=== PATIENT | female | born 1940 | race Caucasian/White ===

== ENCOUNTER 2022-06-18 14:19 | Outpatient (RCR) | payer MEDICARE, BC, SELFPAY | END 2023-01-20 23:59 | disposition home or self-care (01) | PROVIDERS: PCP Family Medicine; Visit Provider Family Medicine | DX: F03.B0 Unspecified dementia, moderate, without behavioral disturbance, psychotic disturbance, mood disturbance, and anxiety (principal); Z51.89 Encounter for other specified aftercare | CPT/HCPCS: 97165 ==

== ENCOUNTER 2022-10-18 10:37 | Outpatient (CLI) | payer MEDICARE, BC, SELFPAY | END 2022-10-18 10:38 | disposition home or self-care (01) | LOC: AMB 10-22 09:44 | PROVIDERS: PCP Family Medicine; Visit Provider Family Medicine | DX: R53.1 Weakness (principal); R11.10 Vomiting, unspecified; R19.7 Diarrhea, unspecified | CPT/HCPCS: A0425; A0429 ==

== ENCOUNTER 2022-10-18 10:52 | Emergency (ER) | payer MEDICARE, BC, SELFPAY ==
[2022-10-18 11:09] VITALS: BP 111/70; PULSE 64; RESP 18; TEMP 35.6; O2SAT 96; BMI 23.3
--- NOTE | 2022-10-18 11:47 | ED.GENADULT ---
HPI - General Adult General Date Seen: 10/18/22 Chief complaint: Nausea/Vomiting Stated complaint: Low BP Time Seen by Provider: 10/18/22 11:07 Source: patient and family Mode of arrival: EMS Limitations: other History of Present Illness HPI narrative: Patient is an 81-year-old woman here from [facility] by EMS. Her daughter is with her. She does live on the dementia unit and acknowledges that her memory is poor although she is able to provide a reasonably good history. She says that this morning she got up and went down to have some breakfast. She drank a half a cup of coffee and then says that she started to eat breakfast. [place] through breakfast she says she all of a sudden started vomiting. She vomited a couple of times and has not vomited since then. She did then have some diarrhea as well which is not reported to be bloody. Her daughter reports that she has been vacillating a bit between constipation and diarrhea and they been working on getting at the right dose of senna and having her eat prunes to try and manage her bowel movements. So, some diarrhea is not necessarily unusual for her. She denies any abdominal pain. She does not recall having any chest pain, difficulty breathing, lightheadedness or palpitations. There is no reported fever. She denies urinary symptoms. She has no history of abdominal surgeries. She does not feel currently significantly ill. There was concerned that her blood pressures were low in the 90s. They have been above 104 EMS as well as here. Related Data Home Medications Medication Instructions Recorded Confirmed acetaminophen 500 mg capsule 500 mg PO Q6H PRN 10/18/22 10/18/22 cholecalciferol (vitamin D3) 25 25 mcg PO DAILY 10/18/22 10/18/22 mcg (1,000 unit) capsule levothyroxine 88 mcg tablet 88 mcg PO DAILY 10/18/22 10/18/22 magnesium 250 mg tablet 250 mg PO DAILY 10/18/22 10/18/22 melatonin 5 mg tablet 5 mg PO HS PRN 10/18/22 10/18/22 mirtazapine 45 mg tablet 45 mg PO QPM 10/18/22 10/18/22 nystatin 100,000 unit/gram topical 1 applic topical PRN 10/18/22 10/18/22 powder peg 400-propylene glycol 0.4 %-0.3 1 drp ophthalmic (eye) BID PRN 10/18/22 10/18/22 % eye drops (Lubricant Eye (PG-PEG 400)) timolol 0.5 % eye drops (Betimol) 1 drp ophthalmic (eye) DAILY 10/18/22 10/18/22 venlafaxine 75 mg capsule,extended 1 PO BID 10/18/22 release 24 hr vitamins A,C,A-cdpv-nlzwoe 2,148 2 tab PO BID 10/18/22 10/18/22 mcg-113 mg-45 mg-17.4 mg tablet (PreserVision AREDS) Allergies Allergy/AdvReac Type Severity Reaction Status Date / Time donepezil [From Aricept] Allergy Verified 10/18/22 11:03 lisinopril Allergy Verified 10/18/22 11:03 Sulfa (Sulfonamide Allergy Verified 10/18/22 11:03 Antibiotics) zaleplon Allergy Verified 10/18/22 11:03 Review of Systems Status of ROS: Reports: 10 or more systems reviewed and unremarkable except as noted in History and below PFSH PFS Social History Smoking Status: Never smoker Do you use any of these nicotine containing products: None Second hand tobacco smoke exposure: No How often do you have a drink containing alcohol: never How often do you have six or more drinks on one occasion: Never AUDIT-C Alcohol total score: 0 Non-prescribed substance use: denies use service: No Exam Narrative: Exam Narrative: Vital signs as noted above. In general, an alert, nontoxic elderly woman. Looks comfortable. Head: Normocephalic, atraumatic. Eyes: Pupils are equal reactive. Extraocular movements are full. Conjunctivae are normal. ENT: Mucous membranes are moist. Throat is normal. Neck: Supple without lymphadenopathy. Heart: Regular rate and rhythm. No murmur or rub. Lungs: Clear bilaterally. No increased work of breathing, crackles or wheezes. Abdomen: Soft and nontender. No organomegaly. Extremities: Well perfused. No edema. No calf tenderness. Pulses intact. Neurologic: Patient is alert and oriented to person. Speech is fluent. Face is symmetric. Moves all extremities equally. Affect: Normal. Skin: Warm and dry. Well perfused. Const: Vital Signs, click to edit/add: Vital Signs - 24 hr 10/18/22 11:09 Temperature 96.0 F L Pulse Rate [Right Pulse Oximeter] 64 Respiratory Rate 18 Blood Pressure [Ri ght Upper Arm] 111/70 Pulse Oximetry 96 Oxygen Delivery Me thod Room Air Documenting provider has reviewed patient's vital signs: yes Course Course Hospital Course: Following initial evaluation, we placed an IV, gave a L of normal saline and some Zofran. She has not had any further vomiting and continues to feel well. Labs are notable for mildly elevated white blood cell count of 12.1, nonspecific in this setting. Hemoglobin is 16 and platelets are normal. Metabolic panel shows a sodium of 139, potassium of 5.1, CO2 of 23, BUN of 23 and creatinine of 1.3. Lactate is normal at 1.2, LFTs are entirely normal and CRP is 0.6. Urinalysis showed no ketones, 0-2 red cells, 0-2 white blood cells. A point of care troponin was 0 and an EKG done on arrival showed a normal sinus rhythm, ventricular rate of 63 beats per minute without acute ST segment changes. Based on the absence of any abdominal pain or tenderness, my suspicion for alternative causes for her vomiting and diarrhea such as biliary colic, cholecystitis, pancreatitis, colitis, diverticulitis, obstruction, etcetera is rather low. At this time I do not see a need for advanced imaging. She was able to drink some water here without difficulty. Would recommend clear liquids today and advance as able suspecting that symptoms are likely viral. If she is not improving or develops worsening symptoms she should return for re-evaluation. She and her daughter are comfortable with that plan. Vital Signs Vital signs: Initial Vital Signs Temperature 96.0 F L 10/18/22 11:09 Temperature Source Temporal Artery Scan 10/18/22 11:09 Pulse Rate 64 10/18/22 11:09 Respiratory Rate 18 10/18/22 11:09 Blood Pressure 111/70 10/18/22 11:09 Blood Pressure Mean 83 10/18/22 11:09 Blood Pressure Position Sitting 10/18/22 11:09 Pulse Oximetry 96 10/18/22 11:09 Oxygen Delivery Method Room Air 10/18/22 11:09 Vital Signs Temperature 96.0 F L 10/18/22 11:09 Pulse Rate 64 10/18/22 11:09 Respiratory Rate 18 10/18/22 11:09 Blood Pressure 111/70 10/18/22 11:09 Pulse Oximetry 96 10/18/22 11:09 Oxygen Delivery Method Room Air 10/18/22 11:09 Temperature 96.0 F L 10/18/22 11:09 Pulse Rate 64 10/18/22 11:09 Respiratory Rate 18 10/18/22 11:09 Blood Pressure 111/70 10/18/22 11:09 Pulse Oximetry 96 10/18/22 11:09 Oxygen Delivery Method Room Air 10/18/22 11:09 Medical Decision Making Lab Data Labs: Lab Results 10/18/22 10/18/22 Range/Units 11:48 14:18 WBC 12.14 H (4.50-11.00) K/uL RBC 5.17 (4.00-5.20) m/uL Hgb 16.0 (12.0-16.0) gm/dL Hct 49.3 (33.0-51.0) % MCV 95 (80-100) fL MCH 31 (26-34) pg MCHC 33 (32-36) gm/dL RDW Coeff of Macey 12.8 (11.5-15.5) % Plt Count 318 (140-440) K/uL Neut % (Auto) 77.2 H (42.0-72.0) % Lymph % (Auto) 15.2 L (20-44) % Robertson % (Auto) 6.3 (0.0-11.0) % Eos % (Auto) 0.9 (0.0-7.0) % Baso % (Auto) 0.2 (0.0-3.0) % Neut # (Auto) 9.40 H (1.7-7.0) K/uL Lymph # (Auto) 1.80 (0.90-2.90) K/uL Robertson # (Auto) 0.80 (0.00-0.90) K/UL Eos # (Auto) 0.10 (0.00-0.50) K/uL Baso # (Auto) 0.00 (0.00-0.30) K/uL Sodium 139 (135-149) mmol/L Potassium 5.1 (3.6-5.1) mmol/L Chloride 111 (96-114) mmol/L Carbon Dioxide 23 (20-32) mmol/L BUN 23 (7-30) mg/dL Creatinine 1.3 (0.5-1.5) mg/dL Estimated Creat Clear 30.70 Estimated GFR 41 ml/min Glucose 105 (60-115) mg/dL Lactate 1.2 (0.5-1.9) mmol/L Calcium 9.2 (8.4-10.6) mg/dL Total Bilirubin 0.6 (0.1-1.5) mg/dL Direct Bilirubin 0.2 (0.0-0.5) mg/dL AST 31 (12-35) U/L ALT 27 (4-35) U/L Alkaline Phosphatase 88 (40-150) U/L C-Reactive Protein 0.6 (0.5-1.0) mg/dL Total Protein 7.0 (6.0-8.3) g/dL Albumin 4.2 (3.3-5.0) g/dL Urine Color Yellow (Yellow) Urine Appearance Clear (Clear) Urine pH 6.5 (5.0-8.5) Ur Specific [place] 1.015 (1.000-1.030) Urine Protein Negative (Negative) Urine Glucose (UA) Negative (Negative) Urine Ketones Negative (Negative) Urine Blood Negative (Negative) Urine Nitrite Negative (Negative) Urine Bilirubin Negative (Negative) Urine Urobilinogen 0.2 (0.2-1.0) Ur Leukocyte Esterase Trace A (Negative) Urine RBC 0-2 (0-2) Urine WBC 0-2 (0-5) Ur Squamous Epith Cells Few (None-Few) Amorphous Sediment Moderate A (None) Urine Bacteria None (None) POC Troponin I 0.00 L (0.01-0.04) ng/ml Discharge Plan Discharge Clinical Impression: Vomiting and diarrhea Patient Disposition: Xfer [facility] Condition: Improved Instructions: Acute Nausea and Vomiting (DC) Additional Instructions: All of your labs are reassuring today. Symptoms may be due to a viral infection, and if so to you should feel better over the next 1-2 days. If you have persistent symptoms, or you develop new symptoms such as significant abdominal pain, fevers, bloody stools, or other changes, you should be seen again. You may want to stick with clear liquids this afternoon and advance your diet depending on how your stomach feels. Prescriptions: No Action venlafaxine 75 mg capsule,extended release 24hr 1 PO BID levothyroxine 88 mcg tablet 88 mcg PO DAILY mirtazapine 45 mg tablet 45 mg PO QPM Lubricant Eye (PG-PEG 400) 0.4-0.3 % drops 1 drp ophthalmic (eye) BID PRN acetaminophen 500 mg capsule 500 mg PO Q6H PRN Betimol 0.5 % drops 1 drp ophthalmic (eye) DAILY cholecalciferol (vitamin D3) 25 mcg (1,000 unit) capsule 25 mcg PO DAILY magnesium 250 mg tablet 250 mg PO DAILY melatonin 5 mg tablet 5 mg PO HS PRN nystatin 100,000 unit/gram powder 1 applic topical PRN PreserVision AREDS 2,148 mcg-113 mg-45 mg-17.4mg tablet 2 tab PO BID Rx Instructions: administer with AM and PM meals Stand Alone Forms: [facility] Info Instructions
[2022-10-18] MEDS: 0.9 % SODIUM CHLORIDE 1000 ml 1,000 ML IV (11:54)
[2022-10-18 11:56] LABS: Basophils Percent Auto 0.2 % (0.0-3.0); Eosinophils Percent Auto 0.9 % (0.0-7.0); Hematocrit 49.3 % (33.0-51.0); Immature Granulocytes Pct Auto 0.2 %; Lactate* 1.2 mmol/L (0.5-1.9); Lymphocytes Percent Auto 15.2 % (20-44); Mean Corpuscular HGB Conc 33 gm/dL (32-36); Mean Corpuscular Hemoglobin 31 pg (26-34); Mean Corpuscular Volume 95 fL (80-100); Monocytes Percent Auto 6.3 % (0.0-11.0); Neutrophils Percent Auto 77.2 % (42.0-72.0); Platelet Count* 318 K/uL (140-440); RDW Coefficient of Variation % 12.8 % (11.5-15.5); Red Blood Count 5.17 m/uL (4.00-5.20); White Blood Count* 12.14 K/uL (4.50-11.00)
[2022-10-18 12:04] LABS: Slide Review Reflex No
[2022-10-18 12:21] LABS: Albumin* 4.2 g/dL (3.3-5.0); Chloride* 111 mmol/L (96-114)
[2022-10-18 12:22] LABS: Potassium* 5.1 mmol/L (3.6-5.1); Sodium* 139 mmol/L (135-149)
[2022-10-18 12:24] LABS: Alanine Aminotransferase* 27 U/L (4-35); Alkaline Phosphatase* 88 U/L (40-150); Aspartate Amino Transferase* 31 U/L (12-35); Bilirubin Direct* 0.2 mg/dL (0.0-0.5); Bilirubin Total* 0.6 mg/dL (0.1-1.5); Creatinine* 1.3 mg/dL (0.5-1.5); Estimated Glomerular Filt Rate 41 ml/min
[2022-10-18 12:25] LABS: Blood Urea Nitrogen* 23 mg/dL (7-30); Carbon Dioxide* 23 mmol/L (20-32); Glucose* 105 mg/dL (60-115)
[2022-10-18 12:26] LABS: Calcium* 9.2 mg/dL (8.4-10.6)
[2022-10-18 12:28] LABS: C Reactive Protein* 0.6 mg/dL (0.5-1.0)
[2022-10-18 14:32] LABS: Appearance Urine Clear (Clear); Bilirubin Urine Negative (Negative); Blood Urine Negative (Negative); Color Urine Yellow (Yellow); Glucose Urine Negative (Negative); Ketones Urine Negative (Negative); Leukocyte Esterase Urine Trace (Negative); Nitrite Urine Negative (Negative); Protein Urine Negative (Negative); Specific Gravity Urine 1.015 (1.000-1.030); Urobilinogen Urine 0.2 (0.2-1.0); pH Urine 6.5 (5.0-8.5)
[2022-10-18 14:40] LABS: RBC Urine 0-2 (0-2); WBC Urine 0-2 (0-5)
[2022-10-18 14:41] LABS: Amorphous Sediment Urine Moderate; Squamous Epithelial Cell Urine Few (None-Few)
== END 2022-10-18 15:17 | disposition home or self-care (01) ==
PROVIDERS: Emergency Provider Emergency Medicine; PCP Family Medicine
DX: R11.10 Vomiting, unspecified (principal); R19.7 Diarrhea, unspecified
CPT/HCPCS: 36415; 80048; 80076; 81001; 83605; 84484; 85025; 86140; 93005; 99284; J7030

== ENCOUNTER 2023-12-21 10:31 | Outpatient (REF) | payer MEDICARE, BC, SELFPAY ==
--- OUTSIDE RECORDS SUMMARY | 2023-12-21 10:37 | XMS_ITS | Clinical Summary ---
Author Organization [facility] Address [place], [place] [address] Care Team Providers Care Quality Compliance Coordinator Name Role Phone Melody Palmer AuD Unavailable [phone] Pcp, No Primary Care Provider Unavailabl e Allergies Active Allergy Reactions Criticality Noted Date Comments Donepezil 10/21/2010 diarrhea Lisinopril Cough 03/18/2009 Sulfamethoxazole-Trime thoprim Other - Describe In Comment Field High 10/01/2013 Mouth sores, tongue and back of throat burning and vomiting. Zaleplon Itching 11/14/2013 Medications Medication Sig Dispensed Refills Start Date End Date Status magnesium 250 mg Tab Take 1 tablet by mouth once daily. 0 08/02/2012 Active acetaminophen (TYLENOL EXTRA STRGTH) 500 mg tablet Take 1 tablet by mouth every 6 hours if needed. Patient can self-administer. Max acetaminophen dose: 4000mg in 24 hrs. 0 10/17/2018 Active timolol hemihydrate (BETIMOL) 0.5 % ophthalmic solutionIndication s:Glaucoma of both eyes, unspecified glaucoma type Place 1 Drop into both eyes once daily. In the AM 1 Bottle 11 12/22/2020 Active cholecalciferol, Vitamin D3, 2,000 unit tabletIndications: Vitamin D deficiency TAKE 1 TABLET BY MOUTH DAILY 100 Tablet 3 03/12/2021 Active Ocuvite PreserVision 7,160 unit- 113 mg-100 unit tabletIndications: Exudative age-related macular degeneration, unspecified laterality, unspecified stage (HC) TAKE 2 TABLETS BY MOUTH DAILY -ORIGINAL CONTAINER- 180 Tablet 2 06/24/2021 Active melatonin 5 mg tab tabletIndications: Insomnia, idiopathic TAKE 1 TABLET BY MOUTH EVERY NIGHT AT BEDTIME BOTTLE* 90 Tablet 3 06/25/2021 Active Lubricant Eye, PG-PEG 400, 0.4-0.3 % drop ophthalmic INSTILL 1 DROP IN BOTH EYES TWICE DAILY NEEDED 01/01/2022 Active clotrimazole-betam ethasone cream (LOTRISONE) 1-0.05 % creamIndications:T inea corporis Apply topically to affected area(s) two times daily. 45 g 2 06/08/2022 Active nystatin powder (MYCOSTATIN) powderIndications: Tinea corporis Apply 1 Strip topically to affected area(s) three times daily. 60 g 1 06/08/2022 Active timoloL maleate (TIMOPTIC) 0.25 % ophthalmic solution INSTILL 1 DROP IN BOTH EYES EVERY DAY IN THE MORNING 06/06/2022 Active venlafaxine (EFFEXOR XR) 75 mg cp24 Extended-Release capsuleIndications :MDD (major depressive disorder), recurrent, in partial remission (HC) TAKE 2 CAPSULES(150 MG) BY MOUTH EVERY DAY WITH A MEAL 180 Capsule 1 06/28/2023 Active levothyroxine (SYNTHROID) 88 mcg tabletIndications: Hypothyroidism, unspecified type TAKE 1 TABLET(88 MCG) BY MOUTH AT BEDTIME 90 Tablet 11/07/2023 Active mirtazapine (REMERON) 45 mg tabletIndications: Insomnia, unspecified type,Depression, major, recurrent, in partial remission (HC) TAKE 1 TABLET(45 MG) BY MOUTH AT BEDTIME 90 Tablet 11/07/2023 Active Active Problems Problem Noted Date Diagnosed Date Exudative age-related macula r degeneration, unspecified laterality, unspecified stage 06/15/2022 Moderate dementia without behavioral disturbance 10/17/2018 Diverticulosis of large intestine without hemorr renee 06/30/2016 MDD (major depressive disord er), recurrent, in partial remission 04/13/2016 Depression, major, recurrent, in partial remissi on 01/03/2015 Piriformis syndrome 08/04/2013 Sensorineural hearing loss, bilateral 08/21/2012 HTN (hypertension) 03/03/2012 Mixed hyperlipidemia 01/06/2012 Hypothyroidism 11/09/2011 Screen for colon cancer 07/27/2011 Overview: Colonoscopy 07/2011 2 mm polyp, hyperplastic appearance, no follow up needed Dysthymic disorder Unspecified essential hypertension OA (osteoarthritis) Osteoporosis, post-menopausal Overview: on timur L shoulder Hx of breast cancer Overview: lumpectomy, radiation, and 5 years tamoxifen Insomnia Resolved Problems Problem Noted Date Diagnosed Date Resolved Date Mild dementia 12/09/2016 10/17/2018 Rule out Alcohol abuse 11/20/201308/18 Major depression, recurrent 08/16/2010 01/03/2015 Recurrent major depression in remission 04/16/2010 08/16/2010 Moderate recurrent major depression 12/03/2008 04/16/2010 Mild cognitive impairment Overview: see neuro notes 07/14 Encounters Date Type Department Care Team Description 12/19/2023 1:15 PM CDT Office Visit [address] [address] Vandana Avitia MD Consult (Check left breast lumps would now like them removed-redness noted she states) 12/19/2023 Travel 12/07/2023 11:00 AM CDT Office Visit [address] [address] Michelle Nichols AuD Hearing Aid (HAF) 12/07/2023 Travel 11/10/2023 10:30 AM CDT Office Visit [address] [address] Winston Dubon AuD Hearing Problem 11/10/2023 Travel 11/04/[address] [address] Alice Mata MD Refill Request (Levothyroxine, Mirtazapine) 10/26/[address] [address] Alice Mata MD Referral (Audiological Evaluation) from Last 3 Months Immunizations Name Administration Dates Next Due AMB Influenza, IIV3 (Age >=3 years)(Flu Clinic Only) 04/30/2013 COVID-19 vaccine (Pfizer-Bio NTech 30mcg/0.3mL) 12YO+ BIVALENT PF, MDV 04/29/2022 Influenza, High-dose Inactivated 020,04/05/2019,03/06/2019,2015,07/10/2015,04/10/2014 Influenza, High-dose Quadriv alent Inactivated 04/20/2021 Influenza, IIV3 (Age 6-35 mos) 1,03/27/2010,06/10/2009,2006 Influenza, IIV3 (Age >=3 years) 03/10/20 12,04/23/2011,03/27/2010,2008,04/17/2008 Influenza, Inactivated AIIV4 (Age 65+ Years) Preserv Free 04/29/2022 Influenza, Inactivated IIV3 (Age 65+ Years) Preserv Free 04/10/2020 Pneumococcal Poly,23-Valent (Pneumovax) 03/27/2010 Pneumococcal conj 13-Valent (Prevnar 13) 07/10/2015 Tdap 04/23/2011 Zoster (Zostavax-ZVL, live) 05/20/2012 Family History Medical History Relation Name Comments Other Father ALS Cancer-breast Maternal Aunt Cancer-breast Mother Other Mother Alzheimers Osteoporosis Sister 1 #1 Good Health Sister 2 #2 Good Health Sister 3 #3 Relation Name Status Comments Father (Age 80s) ALS Maternal Aunt Mother (Age 80s) Alzheimer s Sister 1 #1 Sister 2 #2 Sister 3 #3 Social History Tobacco Use Types Packs/Day Years Used Date Smoking Tobacco: Never Smokeless Tobacco: Never Tobacco Cessation:Counseling Given: Yes Alcohol Use Standard Drinks/Week Comments Not Currently 7 (1 standard drink = 0.6 oz pur e alcohol) PHQ-2 Answer Date Recorded PHQ-2 TOTAL SCORE 1 06/15/2022 Social Connections Answer Date Recorded Frequency of Communication with Friends and Fami ly Not on file 04/27/2023 Financial Resource Strain Answer Date R ecorded Difficulty of Paying Living Expenses 3 04/29/2022 Difficulty of Paying Living Expenses Not on file 04/29/2022 Food Insecurity Answer Date Recorded Worried About Running Out of Food in the Last Ye ar 1 04/29/2022 Transportation Needs Answer Date Record ed Lack of Transportation (Medical) 1 04/29/2022 Housing Stability Answer Date Recorded Unable to Pay for Housing in the Last Year 1 04/29/2022 Sex and Gender Information Value Date Recorded Sex Assigned at Not on file Gender Identity Not on file Sexual Orientation Not on file Obstetrics History Last Filed Vital Signs Vital Sign Reading Time Taken Comments Blood Pressure 118/78 12/19/2023 1:23 PM CDT Pulse 90 12/19/2023 1:23 PM CDT Temperature 36.6 ??C (97.9 ??F) 03/13/2021 2:13 PM CD T Respiratory Rate 22 10/25/2016 2:46 PM CDT Oxygen Saturation 95% 12/19/2023 1:23 PM CDT Inhaled Oxygen Concentration - - Weight 68 kg (149 lb 14.4 oz) 12/19/2023 1:23 PM CDT with shoes Height 164.5 cm (5' 4.75) 10/12/2021 3:27 PM CD T Body Mass Index 25.14 10/12/2021 3:27 PM CDT Plan of Treatment Upcoming Encounters Date Type Department Care Team (Late st Contact Info) Description 12/28/2023 2:30 PM CDT Office Visit [facility] [address] [place] [address] [facility] [address] [place] [address] Health Maintenance Due Date Last Done Comments Zoster (shingles) series for age 50+ (1 of 2) 07/15/2012 05/20/2012 Tetanus booster 04/23/2021 04/23/2011, 04/23/2011 COVID-19 vaccine series (2 - Pfizer risk series) 05/20/2022 04/29/2022 Medicare Wellness for age 65+ 10/02/2022 10/01/2021 BMI (ht and wt on same day) for age 18+ 10/12/2022 10/12/2021, 10/01/2021, 10/07/2020, Additional history exists Depression screening for age 12+ 06/15/2023 06/15/2022, 10/02/2021, 10/01/2021, Additional history exists Influenza for age 65+ 03/04/2024 04/29/2022 , 04/20/2021, 04/10/2020, Additional history exists Tdap Completed 04/23/2011 DEXA/DXA scan for age 65+ Completed 04/29/2011, 11/2009 Pneumococcal series for age 65+ Completed 6, 03/27/2010 Procedures Procedure Name Priority Date/Time Associated Diagnosis Comments XR DXA BONE DENSITY 2 SITES AXIAL Routine 04/29/2011 1:47 PM CDT Osteoporosis, post-menopausal from Last 3 Months or Most Recently Relevant to Health Maintenance Results * XR DEXA BONE DENSITY 2 SITES (04/29/2011 1:47 PM CDT) Anatomical Region Laterality Modality Spine, HIPS, HIPL, HIPR Other Narrative 05/06/2011 4:24 PM CDT Please see scanned document for results of this study. Procedure Note Susan Joseph - 05/06/2011 Please see scanned document for results of this study. Opal Quintero MD DEXA from Last 3 Months or Most Recently Relevant to Health Maintenance Advance Directives Documents on File Type Date Recorded Patient Collar Trimmer Expl anation Healthcare Directive 09/02/2022 9:27 AM NIKHIL [facility] DIRECTIVE, 08/12/2015 POLST 02/09/2019 10:02 AM POLY MARTINEZ, 10/17/18 Care Teams Quality Compliance Coordinator Relationship Specialty Start Date End Date Pcp, No . PCP - General 02/28/23 Melody Palmer AuD Audiology 08/21/12
[2023-12-21 11:41] LABS: Chloride* 109 mmol/L (96-114); Sodium* 140 mmol/L (135-149)
[2023-12-21 11:42] LABS: Potassium* 4.3 mmol/L (3.6-5.1)
[2023-12-21 11:44] LABS: Anion Gap 8 mEq/L (7-15); Carbon Dioxide* 23 mmol/L (20-32); Creatinine* 1.1 mg/dL (0.5-1.5); Estimated Glomerular Filt Rate 49 ml/min
[2023-12-21 11:45] LABS: Blood Urea Nitrogen* 23 mg/dL (7-30); Calcium* 9.2 mg/dL (8.4-10.6); Glucose* 117 mg/dL (60-115)
== END 2023-12-21 10:32 | disposition home or self-care (01) ==
LOC: NPINS 10:31
PROVIDERS: PCP Family Medicine; Visit Provider Family Medicine
DX: E03.9 Hypothyroidism, unspecified (principal); N18.32 Chronic kidney disease, stage 3b
CPT/HCPCS: 80048; 84443

== ENCOUNTER 2024-01-25 16:53 | Outpatient (REF) | payer MEDICARE, BC, SELFPAY ==
--- OUTSIDE RECORDS SUMMARY | 2024-01-25 16:57 | XMS_ITS | Clinical Summary ---
Author Organization [facility] Address [place], [place] [address] Care Team Providers Care Clerical Administrative Assistant Name Role Phone Melody Palmer AuD Unavailable [phone] Pcp, No Primary Care Provider Unavailabl e [...] 1 tablet by mouth once daily. 0 3 Active acetaminophen (TYLENOL EXTRA STRGTH) 500 mg tablet Take 1 tablet by mouth every 6 hours if needed. Patient can self-administer. Max acetaminophen dose: 4000mg in 24 hrs. 0 9 Active timolol hemihydrate (BETIMOL) 0.5 % ophthalmic solutionIndicatio ns:Glaucoma of both eyes, unspecified glaucoma type Place 1 Drop into both eyes once daily. In the AM 1 Bottle 11 1 Active cholecalciferol, Vitamin D3, 2,000 unit tabletIndications :Vitamin D deficiency TAKE 1 TABLET BY MOUTH DAILY 100 Tablet 3 1 Active Ocuvite PreserVision 7,160 unit- 113 mg-100 unit tabletIndications :Exudative age-related macular degeneration, unspecified laterality, unspecified stage (HC) TAKE 2 TABLETS BY MOUTH DAILY -ORIGINAL CONTAINER- 180 Tablet 2 1 Active melatonin 5 mg tab tabletIndications :Insomnia, idiopathic TAKE 1 TABLET BY MOUTH EVERY NIGHT AT BEDTIME BOTTLE* 90 Tablet 3 1 Active Lubricant Eye, PG-PEG 400, 0.4-0.3 % drop ophthalmic INSTILL 1 DROP IN BOTH EYES TWICE DAILY NEEDED 2 Active clotrimazole-beta methasone cream (LOTRISONE) 1-0.05 % creamIndications: Tinea corporis Apply topically to affected area(s) two times daily. 45 g 2 2 Active nystatin powder (MYCOSTATIN) powderIndications :Tinea corporis Apply 1 Strip topically to affected area(s) three times daily. 60 g 1 2 Active timoloL maleate (TIMOPTIC) 0.25 % ophthalmic solution INSTILL 1 DROP IN BOTH EYES EVERY DAY IN THE MORNING 2 Active levothyroxine (SYNTHROID) 88 mcg tabletIndications :Hypothyroidism, unspecified type TAKE 1 TABLET(88 MCG) BY MOUTH AT BEDTIME 90 Tablet 4 Active mirtazapine (REMERON) 45 mg tabletIndications :Insomnia, unspecified type,Depression, major, recurrent, in partial remission (HC) TAKE 1 TABLET(45 MG) BY MOUTH AT BEDTIME 90 Tablet 4 Active venlafaxine (EFFEXOR XR) 75 mg cp24 Extended-Release capsuleIndication s:MDD (major depressive disorder), recurrent, in partial remission (HC) TAKE 2 CAPSULES(150 MG) BY MOUTH EVERY DAY WITH A MEAL 180 Capsule 1 4 Active venlafaxine (EFFEXOR XR) 75 mg cp24 Extended-Release capsuleIndication s:MDD (major depressive disorder), recurrent, in partial remission (HC) TAKE 2 CAPSULES(150 MG) BY MOUTH EVERY DAY WITH A MEAL 180 Capsule 1 3 12/27/19 24 Discontinued Active Problems Problem Noted Date Diagnosed Date [...] hypertension OA (osteoarthritis) Osteoporosis, post-menopausal Overview: on evleann, L shoulder Hx of breast cancer Overview: [...] Encounters Date Type Department Care Team Description 12/28/2023 2:30 PM CDT Office Visit [address] [address] Michelle Nichols AuD Hearing Aid (AVENDANO check) 12/28/2023 Travel 12/26/[address] [address] Alice Mata MD Refill Request (Venlafaxine) 12/19/2023 1:15 PM CDT Office Visit [address] [place] [address] Vandana Avitia MD Consult (Check left breast lumps would now like them removed-redness noted she states) 12/19/2023 Travel 12/07/2023 11:00 AM CDT Office Visit [facility] [address] [place] [address] Michelle Nichols AuD Hearing Aid (HAF) 12/07/2023 Travel 11/10/2023 10:30 AM CDT Office Visit [facility] [address] [place] [address] Winston Dubon AuD Hearing Problem 11/10/2023 Travel 11/04/[address] [facility] [address] [place] [address] Alice Mata MD Refill Request (Levothyroxine, Mirtazapine) 10/26/[address] [facility] [address] [place] [address] Alice Mata MD Referral (Audiological Evaluation) from Last 3 Months Immunizations Name Administration Dates Next Due AMB Influenza, IIV3 (Age >=3 years)(Flu Clinic Only) 04/30/2013 COVID-19 vaccine (Homeforswap 30mcg/0.3mL) 12YO+ BIVALENT PF, MDV 04/29/2022 Influenza, [...] 10/12/2021 3:27 PM CDT Plan of Treatment Health Maintenance Due Date Last Done Comments [...] Documents on File Type Date Recorded Patient Informatics Specialist Expl anation Healthcare Directive 09/02/2022 9:27 AM NIKHIL LTHCARE DIRECTIVE, 08/12/2015 POLST 02/09/2019 10:02 AM POLY MARTINEZ, 10/17/18 Care Teams Clerical Administrative Assistant Relationship Specialty Start Date End Date Pcp, No . PCP - General 02/28/23 Melody Palmer AuD Audiology 08/21/12
[2024-01-25 17:38] LABS: Appearance Urine Clear (Clear); Bilirubin Urine Negative (Negative); Blood Urine Negative (Negative); Color Urine Yellow (Yellow); Glucose Urine Negative (Negative); Ketones Urine Negative (Negative); Leukocyte Esterase Urine 1+ (Negative); Nitrite Urine Positive (Negative); Protein Urine Negative (Negative); Specific Gravity Urine >= 1.030 (1.000-1.030); Urobilinogen Urine 0.2 (0.2-1.0); pH Urine 5.5 (5.0-8.5)
[2024-01-25 18:24] LABS: Bacteria Urine Many; Squamous Epithelial Cell Urine Few (None-Few); WBC Urine 25-50 (0-5)
== END 2024-01-25 16:54 | disposition home or self-care (01) ==
LOC: NPINS 16:53
PROVIDERS: PCP Family Medicine; Visit Provider Nurse Practitioner Gerontology
DX: R33.9 Retention of urine, unspecified (principal)
CPT/HCPCS: 81001; 81003; 87086; 87186

== ENCOUNTER 2024-04-24 16:02 | Outpatient (REF) | payer MEDICARE, BC, SELFPAY ==
--- OUTSIDE RECORDS SUMMARY | 2024-04-24 16:07 | XMS_ITS | Clinical Summary ---
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 Name Role Phone Melody Palmer AuD Unavailable [phone] Pcp, No Primary Care Provider Unavailabl e [...] 12/22/2020 Active cholecalciferol, Vitamin D3, 2,000 unit tabletIndications :Vitamin D deficiency TAKE 1 TABLET BY MOUTH DAILY 100 Tablet 3 03/12/2021 Active Ocuvite PreserVision 7,160 unit- 113 mg-100 unit tabletIndications :Exudative age-related macular degeneration, unspecified laterality, unspecified stage (HC) TAKE 2 TABLETS BY MOUTH DAILY -ORIGINAL CONTAINER- 180 Tablet 2 06/24/2021 Active melatonin 5 mg tab tabletIndications :Insomnia, idiopathic TAKE 1 TABLET BY MOUTH EVERY NIGHT AT BEDTIME BOTTLE* 90 Tablet 3 06/25/2021 Active Lubricant Eye, PG-PEG 400, 0.4-0.3 % drop ophthalmic INSTILL 1 DROP IN BOTH EYES TWICE DAILY NEEDED 01/01/2022 Active clotrimazole-beta methasone cream (LOTRISONE) 1-0.05 % creamIndications: Tinea corporis Apply topically to affected area(s) two times daily. 45 g 2 06/08/2022 Active nystatin powder (MYCOSTATIN) powderIndications :Tinea corporis Apply 1 Strip topically to affected area(s) three times daily. 60 g 1 06/08/2022 Active timoloL maleate (TIMOPTIC) 0.25 % ophthalmic solution INSTILL 1 DROP IN BOTH EYES EVERY DAY IN THE MORNING 06/06/2022 Active mirtazapine (REMERON) 45 mg tabletIndications :Insomnia, unspecified type,Depression, major, recurrent, in partial remission (HC) TAKE 1 TABLET(45 MG) BY MOUTH AT BEDTIME 90 Tablet 11/07/2023 Active levothyroxine (SYNTHROID) 88 mcg tabletIndications :Hypothyroidism, unspecified type TAKE 1 TABLET(88 MCG) BY MOUTH AT BEDTIME 90 Tablet 02/08/2024 Active venlafaxine (EFFEXOR XR) 75 mg cp24 Extended-Release capsuleIndication s:MDD (major depressive disorder), recurrent, in partial remission (HC) TAKE 2 CAPSULES(150 MG) BY MOUTH EVERY DAY WITH A MEAL 180 Capsule 03/29/2024 Active venlafaxine (EFFEXOR XR) 75 mg cp24 Extended-Release capsuleIndication s:MDD (major depressive disorder), recurrent, in partial remission (HC) TAKE 2 CAPSULES(150 MG) BY MOUTH EVERY DAY WITH A MEAL 180 Capsule 1 12/27/2023 03/29/20 24 Discontinu ed(*Availa bility/For mulary change/Cos t of medication ) Active Problems Problem Noted Date Diagnosed Date [...] Hypothyroidism 11/09/2011 Screen for colon cancer 07/27/2011 Overview (07/27/2011): Colonoscopy 07/2011 2 mm polyp, hyperplastic appearance, no follow up needed Dysthymic disorder Unspecified essential hypertension OA (osteoarthritis) Osteoporosis, post-menopausal Overview (05/01/2008): on Adriel ding shoulder Hx of breast cancer Overview (05/01/2008): lumpectomy, radiation, and 5 years tamoxifen Insomnia Resolved Problems Problem Noted Date Diagnosed Date Resolved Date Mild dementia 12/09/2016 10/17/2018 Rule out Alcohol abuse 11/20/201308/18 Major depression, recurrent 08/16/2010 01/03/2015 Recurrent major depression in remission 04/16/2010 08/16/2010 Moderate recurrent major depression 12/03/2008 04/16/2010 Mild cognitive impairment Overview (10/27/2010): see neuro notes 07/14 Encounters Date Type Department Care Team Description 04/03/2024 8:30 AM CDT Office Visit [facility] [address] [place] [address] Michelle Nichols AuD Hearing Aid (AVENDANO check) 04/02/2024 Travel 03/26/2024 Refill [facility] [address] [place] [address] Alice Mata MD Refill Request (Venlafaxine) 02/06/2024 Refill [facility] [address] [place] [address] Alice Mata MD Refill Request (Levothyroxine) 01/30/2024 Lab Requisition [facility] [phone] Unknown, Doctor from Last 3 Months Immunizations Name Administration Dates Next Due AMB Influenza, IIV3 (Age >=3 years)(Flu Clinic Only) 04/30/2013 COVID-19 vaccine ([employer] NTMirror Digital 30mcg/0.3mL) 12YO+ BIVALENT PF, MDV 04/29/2022 Influenza, [...] Comments Zoster (shingles) series for age 50+ (2 of 3) 07/15/2012 05/20/2012 RSV vaccine for adults or (1 - 1-dose 75+ series) 2013 Tetanus booster 04/23/2021 04/23/2011, 04/23/2011 Medicare Wellness for age 65+ 10/02/2022 10/01/2021 BMI (ht and wt on same day) for age 18+ 10/12/2022 10/12/2021, 10/01/2021, 10/07/2020, Additional history exists Depression screening for age 12+ 06/15/2023 06/15/2022, 10/02/2021, 10/01/2021, Additional history exists COVID-19 vaccine series () 03/04/2024 04/29/2022 Influenza for age 65+ 03/04/2024 04/29/2022 , 04/20/2021, 04/10/2020, Additional history exists Tdap Completed 04/23/2011 DEXA/DXA scan for age 65+ Completed 04/29/2011, 11/2009 Pneumococcal series for age 65+ Completed 6, 03/27/2010 Procedures Procedure Name Priority Date/Time Associated Diagnosis Comments REFERRAL SUSCEPTIBILITY Routine 01/25/20 2:00 PM CDT XR DXA BONE DENSITY 2 SITES AXIAL Routine 04/29/2011 1:47 PM CDT Osteoporosis, post-menopausal from Last 3 Months or Most Recently Relevant to Health Maintenance Results * (ABNORMAL) REFERRAL SUSCEPTIBILITY (01/25/2024 2:00 PM CDT) CULTURE RESULT(A) 02/01/2024 6:50 AM CDT [facility] CULTURE Citrobacter species 02/01/2024 6:50 AM CDT [facility] Other Client Collect / Unknown 01/25/2024 2:00 PM CDT 01/30/2024 1:34 PM CDT Narrative Organism Antibiotic Method Susceptibility Citrobacter species CEFAZOLIN >=32: R Citrobacter species GENTAMICIN <=1: S Citrobacter species CEFTRIAXONE <=0.25: S Citrobacter species CEFTAZIDIME <=0.5: S Citrobacter species LEVOFLOXACIN <=0.12: S Citrobacter species CIPROFLOXACIN <=0.06: S Citrobacter species PIPERACILLIN/TAZO <=4: S Citrobacter species CEFEPIME <=0.12: S Citrobacter species MEROPENEM <=0.25: S Doctor Unknown [facility] [address] [place] [address], * XR DEXA BONE DENSITY 2 SITES (04/29/2011 1:47 PM CDT) Anatomical Region Laterality Modality Spine, HIPS, HIPL, HIPR Other Narrative 05/06/2011 4:24 PM CDT Please see scanned document for results of this study. Procedure Note Susan Joseph Andre - 05/06/2011 Please see scanned document for results of this study. 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 PCP - General 02/28/23 Melody Palmer AuD Audiology 08/21/12
[2024-04-24 16:47] LABS: Appearance Urine Turbid (Clear); Bilirubin Urine Negative (Negative); Blood Urine Negative (Negative); Color Urine Yellow (Yellow); Glucose Urine Negative (Negative); Ketones Urine Negative (Negative); Leukocyte Esterase Urine Trace (Negative); Nitrite Urine Negative (Negative); Protein Urine Negative (Negative); Specific Gravity Urine <= 1.005 (1.000-1.030); Urobilinogen Urine 0.2 (0.2-1.0)
[2024-04-24 17:05] LABS: RBC Urine 0-2 (0-2)
[2024-04-24 17:06] LABS: Bacteria Urine Many; Squamous Epithelial Cell Urine Few (None-Few)
== END 2024-04-24 16:03 | disposition home or self-care (01) ==
LOC: NPINS 16:02
PROVIDERS: PCP Family Medicine; Visit Provider Nurse Practitioner Gerontology
DX: M54.50 Low back pain, unspecified (principal); Z91.81 History of falling
CPT/HCPCS: 81001; 81003; 87086; 87186

== ENCOUNTER 2024-11-21 11:40 | Outpatient (REF) | payer MEDICARE, BC, SELFPAY ==
[2024-11-21 13:33] LABS: Basophils Absolute Auto 0.05 K/uL (0.00-0.30); Basophils Percent Auto 0.5 % (0.0-3.0); Chloride* 106 mmol/L (96-114); Eosinophils Absolute Auto 0.09 K/uL (0.00-0.50); Eosinophils Percent Auto 0.9 % (0.0-7.0); Hematocrit 45.8 % (33.0-51.0); Hemoglobin* 14.7 gm/dL (12.0-16.0); Immature Granulocytes Abs Auto 0.02 K/uL (0.00-0.30); Immature Granulocytes Pct Auto 0.2 %; Lymphocytes Percent Auto 12.2 % (20-44); Mean Corpuscular HGB Conc 32 gm/dL (32-36); Mean Corpuscular Hemoglobin 33 pg (26-34); Mean Corpuscular Volume 102 fL (80-100); Monocytes Percent Auto 7.8 % (0.0-11.0); Neutrophils Percent Auto 78.4 % (42.0-72.0); Platelet Count* 402 K/uL (140-440); Potassium* 4.6 mmol/L (3.6-5.1); RDW Coefficient of Variation % 13.6 % (11.5-15.5); Sodium* 137 mmol/L (135-149); White Blood Count* 10.37 K/uL (4.50-11.00)
[2024-11-21 13:36] LABS: Blood Urea Nitrogen* 20 mg/dL (7-30); Creatinine* 0.9 mg/dL (0.5-1.5); Estimated Glomerular Filt Rate 63 ml/min; Slide Review Reflex No
[2024-11-21 13:37] LABS: Anion Gap 7 mEq/L (7-15); Calcium* 9.3 mg/dL (8.4-10.6); Carbon Dioxide* 24 mmol/L (20-32); Glucose* 123 mg/dL (60-115)
== END 2024-11-21 11:41 | disposition home or self-care (01) ==
LOC: NPINS 11:40
PROVIDERS: PCP Family Medicine; Referring Provider Nurse Practitioner Adult Health; Visit Provider Nurse Practitioner Adult Health
DX: E03.9 Hypothyroidism, unspecified (principal); R06.09 Other forms of dyspnea; N18.32 Chronic kidney disease, stage 3b
CPT/HCPCS: 80048; 84443; 85025